=== PATIENT | male | born 1980 | race Caucasian/White ===

== ENCOUNTER 2018-11-13 08:34 | Emergency (ER) | payer OTHER ==
[~2018-11-13] VITALS: Ht 175.3 cm; Wt 95.7 kg
[2018-11-13 08:44] VITALS: BP 134/86
--- NOTE | 2018-11-13 08:55 | NUR ---
C/O "HEARTBURN" X 2 DAYS. PT REPORTS HAVING A CHRONIC HISTORY OF ACID REFLUX AND HAS BEEN TAKING LANSOPRAZOLE FOR 2 YEARS, BUT IT HASNT BEEN WORKING THE LAST FEW DAYS. DENIES N/V. HX: ACID REFLUX RX: LANSOPRAZOLE . DENIES N/V/D; SKIN IS PINK/WARM/DRY; AAOX4 WITH EVEN AND STEADY GAIT; LUNGS CLEAR BL; HR EVEN AND REGULAR; PT DENIES ANY FEVER, CP, SOB, OR COUGH AT THIS TIME; PATIENT STATES PAIN OF 6-7/10 AT THIS TIME; VSS; PATIENT POSITIONED FOR COMFORT; HOB ELEVATED; BEDRAILS UP X2; BED DOWN. ER MD MADE AWARE OF PT STATUS.
[2018-11-13] MEDS ORDERED: ALUMINUM HYD/MAG/SIMETHICONE 30 ML UDC PO ONE (09:20)
[2018-11-13] MEDS ORDERED: LIDOCAINE VISCOUS 2% 20 ML UDC PO ONE (09:20)
[2018-11-13] MEDS ORDERED: FAMOTIDINE 20 MG TAB PO ONE (09:20)
[2018-11-13 09:35] LABS: BASOPHILS # (AUTO) 0.1 K/uL (0.00-0.22); BASOPHILS % (AUTO) 1.6 % (0.0-2.0); EOSINOPHILS # (AUTO) 0.2 K/uL (0-0.4); EOSINOPHILS % (AUTO) 2.5 % (0.0-4.0); HEMATOCRIT 47.2 % (36-52); HEMOGLOBIN 16.3 g/dL (12.0-18.0); LYMPHOCYTES # (AUTO) 1.6 K/uL (2.0-11.5); LYMPHOCYTES % (AUTO) 25.2 % (20.5-51.1); MEAN CORPUSCULAR HEMOGLOBIN 30 pg (27-31); MEAN CORPUSCULAR HGB CONC 34 g/dL (33-37); MEAN CORPUSCULAR VOLUME 86.2 fL (80-94); MONOCYTES # (AUTO) 0.5 K/uL (0.8-1.0); MONOCYTES % (AUTO) 7.9 % (1.7-9.3); NEUTROPHILS % (AUTO) 62.8 % (42.2-75.2); PLATELET COUNT (AUTO) 344 K/uL (140-450); RED BLOOD CELL COUNT(AUTO) 5.48 MIL/uL (4.20-6.10); WHITE BLOOD COUNT (AUTO) 6.3 K/uL (4.8-10.8)
--- NOTE | 2018-11-13 09:35 | NUR ---
PT LYING COMFORTABLY IN HIS BED. NO DISTRESS NOTED. WILL CONTINUE TO MONITOR PT.
[2018-11-13 09:46] LABS: ANION GAP 16.3 (8-16); CARBON DIOXIDE 22.7 mmol/L (21-32)
[2018-11-13 09:51] LABS: ALBUMIN 4.3 g/dL (3.4-5.0); TOTAL BILIRUBIN 1.4 mg/dL (0.0-1.0)
--- NOTE | 2018-11-13 10:00 | NUR ---
CHECKED ON PT . DENIES ANY PAIN AT THIS TIME. STATES NO ANXIETY, JUST SLIGHT BURNING .
[2018-11-13 10:55] VITALS: BP 134/86
--- NOTE | 2018-11-13 10:55 | NUR ---
Patient discharged with v/s stable. Written and verbal after care instructions given and explained. Patient alert, oriented and verbalized understanding of instructions. Ambulatory with steady gait. All questions addressed prior to discharge. ID band removed. Patient advised to follow up with PMD. Opportunity to ask questions provided and answered.
== END 2018-11-13 10:55 | disposition home or self-care (01) ==
LOC: MED 08:34
DX: K21.9 Gastro-esophageal reflux disease without esophagitis (principal)
CPT/HCPCS: 36415; 71046; 80053; 83690; 84484; 85025; 93005; 99284